=== PATIENT | male | born 1980 | race Asian ===

== ENCOUNTER 2020-10-21 14:26 | Emergency (ER) | payer OTHER ==
[~2020-10-21] VITALS: Ht 175.3 cm; Wt 79.4 kg
[2020-10-21 14:33] VITALS: BP 118/71
--- NOTE | 2020-10-21 15:03 | NUR ---
Patient discharged to home in stable condition. Written and verbal after care instructions given. Patient verbalizes understanding of instruction.
== END 2020-10-21 15:03 | disposition home or self-care (01) ==
LOC: ER 14:27
DX: Z20.822 Contact with and (suspected) exposure to COVID-19 (principal)
CPT/HCPCS: 99283; C9803; U0003

== ENCOUNTER 2025-04-26 11:34 | Emergency (ER) | payer OTHER ==
[~2025-04-26] VITALS: Ht 177.8 cm; Wt 108.9 kg
[2025-04-26] MEDS ORDERED: IBUPROFEN 600 MG TABLET ONE (12:01)
[2025-04-26] MEDS ORDERED: ACETAMINOPHEN ES 500 MG TABLET ONE (12:01)
[2025-04-26] MEDS: ACETAMINOPHEN ES 500 MG TABLET PO ONE (12:04)
[2025-04-26] MEDS: IBUPROFEN 600 MG TABLET PO ONE (12:04)
[2025-04-26] MEDS ORDERED: IBUP-1490 PO (13:57)
[2025-04-26 14:27] VITALS: BP 151/103; TEMP 98.2; O2SAT 99
== END 2025-04-26 14:28 | disposition home or self-care (01) ==
LOC: ER 11:36
DX: S13.4XXA Sprain of ligaments of cervical spine, initial encounter (principal); S20.219A Contusion of unspecified front wall of thorax, initial encounter; S09.90XA Unspecified injury of head, initial encounter; I10 Essential (primary) hypertension; J45.909 Unspecified asthma, uncomplicated; V89.2XXA Person injured in unspecified motor-vehicle accident, traffic, initial encounter; Y93.89 Activity, other specified; Y92.415 Exit ramp or entrance ramp of street or highway as the place of occurrence of the external cause; Y99.8 Other external cause status
CPT/HCPCS: 70450-TC; 71250-TC; 72125-TC